=== PATIENT | male | born 1965 | race Caucasian/White ===

== ENCOUNTER 2016-11-12 23:11 | Inpatient (IN) | payer OTHER ==
[~2016-11-12] VITALS: Ht 185.4 cm; Wt 89.1 kg
[~2016-11-12 23:11] MED LIST: ASPCH81X PO; ATOR-54 PO; CYCL10TA6 PO; FLUT1AER5 INH; LISI40TA PO; PANT40TA PO
[2016-11-12] MEDS ORDERED: SODIUM CHLORIDE 0.9% 500ML 500 ML IV STA (23:37)
[2016-11-12 23:53] LABS: BASO % 0.4 %; BASO ABS # 0.05 K/uL (0-0.2); COMPLETE YES; EOS % 1.4 %; IG% 0.2 %; LYMPH % 30.6 %; LYMPH ABS # 3.97 K/uL (1.2-3.4); MEAN CELL VOLUME 82.9 fL (80-100); MEAN CORPUSCULAR HEMOGLOBIN 29.7 pg (25-34); MEAN CORPUSCULAR HGB CONC 35.8 g/dl (32-36); MEAN PLATELET VOLUME 11.8 fL (7.4-10.4); MONO % 8.3 %; NEUT % 59.1 %; PLATELET COUNT 243 K/uL (130-400); RED BLOOD COUNT 5.19 M/uL (4.7-6.1); WHITE BLOOD COUNT 12.98 K/uL (4.8-10.8)
[2016-11-13 00:01] LABS: ARTERIAL BLD GAS O2 SATURATION 97.1 % (90-95); ARTERIAL BLOOD GAS HCO3 15 mmol/L (19-24); ARTERIAL BLOOD GAS PO2 91 mm/Hg (80-95); ARTERIAL BLOOD GAS pH 7.39 (7.35-7.45)
[2016-11-13 00:02] LABS: ALLEN TEST POS (POS); O2 ADMINISTRATION RA
[2016-11-13] MEDS ORDERED: MELO15TA4 PO (00:10)
[2016-11-13] MEDS ORDERED: VNTHFA/IN INH (00:10)
[2016-11-13 00:18] LABS: ALB/GLOB RATIO 1.1 (0.9-2); ALKALINE PHOSPHATASE 133 U/L (45-117); ALT/SGPT 41 U/L (12-78); AST/SGOT 28 U/L (15-37); BLOOD UREA NITROGEN 20 mg/dl (7-18); BUN/CREATININE RATIO 15.2 (10-20); CALCIUM 9.3 mg/dl (8.5-10.1); CARBON DIOXIDE 15 mmol/L (21-32); CHLORIDE 87 mmol/L (98-107); GLUCOSE 573 mg/dl (70-99); POTASSIUM 4.1 mmol/L (3.5-5.1); SODIUM 123 mmol/L (136-145)
[2016-11-13 00:33] LABS: URINE APPEARANCE CLEAR (CLEAR); URINE BILIRUBIN NEG (NEG); URINE COLOR YELLOW; URINE NITRITE NEG (NEG); URINE SPECIFIC GRAVITY 1.027 (1.000-1.030); UROBILINOGEN NEG (NEG); ZZUR CULT IF INDIC CLEAN CATCH NO
[2016-11-13 00:38] LABS: MANUAL MICROSCOPIC REQUIRED? NO; REVIEW REQ? NO
[2016-11-13] MEDS ORDERED: SODIUM CHLORIDE 0.9% 1000ML 1,000 ML IV STA ×2 (00:38→02:52)
[2016-11-13] MEDS ORDERED: SODIUM CHLORIDE 0.9% 500ML 500 ML IV STA (00:38)
[2016-11-13 00:39] LABS: BETA-HYDROXYBUTYRATE 72.98 mg/dL (0.2-2.81)
[2016-11-13] MEDS ORDERED: LIDOCAINE HCL 2% VISC SOLN 20 ML UDC PO STA (00:45)
[2016-11-13] MEDS ORDERED: ALUMINUM/MAGNESIUM SUSP 30 ML UDC PO STA (00:45)
--- NOTE | 2016-11-13 00:48 | EMERGENCY ROOM VISIT NOTE ---
History Report prepared by Nadya: Helder Nuñez Under the Supervision of: Dr. Barbara Clifton D.O. First contact with patient: 00:32 Chief Complaint: HYPERGLYCEMIA Stated Complaint: HYPERGLYCEMIA Nursing Triage Summary: pt's checked pt blood sugar today and it was greater than 600. the is diabetic and became concerned when pt had no appetite, sleeping alot over the past few days. pt states his lack of appetite is due to sore gums which he has appointment for tomorrow. no hx of DM History of Present Illness The patient is a 51 year old male who presents to the Emergency Room with complaints of acute hyperglycemia that was measured earlier today. The patient' s BSG was greater than 400 earlier in the day and greater than 600 when he had it rechecked. The patient has never been diagnosed with diabetes. His is diabetic and was the one who measured his BSG. The patient has been experiencing lack of appetite, excessive sleep, increased thirst and dry mouth this week, which prompted his to check his BSG. The patient has a history of hypertension, hypercholesterolemia, and GERD. He smokes a quarter of a pack of cigarettes per day. Source of History: patient Onset: today Position: other (global) Symptom Intensity: BSG > 600 Quality: other (hyperglycemic) Timing: other (acute) Review of Systems See HPI for pertinent positives & negatives. A total of 10 systems reviewed and were otherwise negative. Past Medical & Surgical Medical Problems: (1) Diabetes mellitus (2) Esophageal Reflux (3) Hypertension Nos (4) Lumbosacral Spondylosis (5) Obstructive chronic bronchitis without exacerbation (6) Pure Hypercholesterolem Family History No pertinent family history Social History Smoking Status: Current Every Day Smoker Marital Status: Housing Status: lives with family Current/Historical Medications Scheduled Aspirin (Aspirin Chewable), 81 MG PO QAM Atorvastatin (Lipitor), 20 MG PO QPM Fluticasone Propionate (Inhala (Flovent Diskus), 1 PUFFS INH BID Insulin Glargine (Lantus Solostar), 18 UNIT SC HS Lisinopril (Zestril), 40 MG PO QAM Meloxicam (Mobic), 15 MG PO DAILY Pantoprazole (Protonix), 40 MG PO QAM Scheduled PRN Albuterol Hfa (Ventolin Hfa), 2-4 PUFFS INH Q6H PRN for SOB/Wheezing Cyclobenzaprine Hcl (Flexeril), 10 MG PO TID PRN for Pain Allergies Coded Allergies: BEE STING (Verified Allergy, Unknown, SWELLING, 11/13/16) Physical Exam Vital Signs Date Time Temp Pulse Resp B/P Pulse Ox O2 Delivery O2 Flow Rate FiO2 11/13/16 02:06 93 16 150/91 97 Room Air 11/13/16 01:34 92 16 141/97 97 Room Air 11/13/16 01:04 97 16 149/95 97 Room Air 11/13/16 00:37 96 16 149/95 97 Room Air 11/13/16 00:30 94 11/12/16 23:19 37.2 84 16 152/106 98 Room Air Physical Exam HEENT: Head - normocephalic and atraumatic Pupils are equal, round, and reactive to light. Extraocular eye muscles are intact, and sclera are anicteric. Nose - moist nasal mucosa without discharge. Mouth -dry buccal mucosa. Oropharynx is nonerythematous and there is no tonsillar exudate or edema noted. Neck: Supple; no JVD, nuchal rigidity, cervical lymphadenopathy. Heart: Tachycardic, regular rhythm. There is a normal S1 and S2 with no murmurs , clicks, or gallops appreciated. Lungs: Clear to auscultation bilaterally with no wheezes, rales, or rhonchi. Abdomen: Soft, completely nontender, nondistended, with good bowel sounds. There are no palpable pulsatile masses or hepatosplenomegaly. There is no guarding, rigidity, or rebound noted. Extremities: No evidence of cyanosis, clubbing, or edema. There are easily palpable peripheral pulses. Skin: warm and dry with good turgor and no rashes. Medical Decision & Procedures ER Provider Diagnostic Interpretation: X-ray results as stated below per interpretation by me. CHEST ONE VIEW PORTABLE: No cardiomegaly or pulmonary infiltrates. Laboratory Results Test 11/12/16 23:20 11/12/16 23:35 11/13/16 00:19 Total Bilirubin 0.7 mg/dl (0.2-1) Aspartate Amino Transf (AST/SGOT) 28 U/L (15-37) Alanine Aminotransferase (ALT/SGPT) 41 U/L (12-78) Alkaline Phosphatase 133 U/L (45-117) Total Protein 7.6 gm/dl (6.4-8.2) Albumin 4.0 gm/dl (3.4-5.0) Globulin 3.6 gm/dl (2.5-4.0) Albumin/Globulin Ratio 1.1 (0.9-2) Beta-Hydroxybutyric Acid 72.98 mg/dL (0.2-2.81) Arterial Blood pH 7.39 (7.35-7.45) Arterial Blood Partial Pressure CO2 25 mmHg (35-46) Arterial Blood Partial Pressure O2 91 mm/Hg (80-95) Arterial Blood HCO3 15 mmol/L (19-24) Arterial Blood Oxygen Saturation 97.1 % (90-95) Arterial Blood Base Excess -8.0 mEq/L (-9-1.8) Arterial Blood Gas Delivery RA José Test POS (POS) Urine Color YELLOW Urine Appearance CLEAR (CLEAR) Urine pH 5.0 (4.5-7.5) Urine Specific [place] 1.027 (1.000-1.030) Urine Protein NEG (NEG) Urine Glucose (UA) 3+ (NEG) Urine Ketones 4+ (NEG) Urine Occult Blood NEG (NEG) Urine Nitrite NEG (NEG) Urine Bilirubin NEG (NEG) Urine Urobilinogen NEG (NEG) Urine Leukocyte Esterase NEG (NEG) Laboratory results per my review. Medications Administered Medications (Trade) Dose Ordered Sig/Med Route Start Time Stop Time Status Last Admin Dose Admin Sodium Chloride 500 ml @ 999 mls/hr Q31M STAT IV 11/12/16 23:37 11/13/16 00:07 DC 11/13/16 00:03 999 MLS/HR Sodium Chloride 500 ml @ 999 mls/hr Q31M STAT IV 11/13/16 00:38 11/13/16 01:08 DC 11/13/16 00:53 999 MLS/HR Sodium Chloride (Nss 1000ml) 1,000 ml @ 250 mls/hr Q4H STAT IV 11/13/16 00:38 11/13/16 04:08 DC 11/13/16 00:54 250 MLS/HR Lidocaine HCl (Viscous Lidocaine 2% Soln) 10 ml NOW STAT PO 11/13/16 00:45 11/13/16 00:47 DC 11/13/16 00:53 10 ML Al Hydroxide/Mg Hydroxide (Maalox Susp) 30 ml NOW STAT PO 11/13/16 00:45 11/13/16 00:47 DC 11/13/16 00:53 30 ML Procedure Medications administered include NSS IV, Maalox PO, Lidocaine HCl PO. ECG Indication: other Rate (beats per minute): 98 Rhythm: normal sinus Findings: no acute ischemic change, no ectopy ED Course 0038: NSS 1000 ml @ 250 mls/hr, NSS 500 ml @ 999 mls/hr. 0042: Past medical records reviewed. The patient was evaluated in room A2. A complete history and physical exam was performed. An IV lock and given initiated and labs were drawn as above. A twelve-lead EKG was obtained as described above. Patient had chest x-ray as described above. 0045: The patient complained of heartburn. Maalox Susp 30 ml PO, Lidocaine HCl 10 ml PO. 0100: Spoke with Dr. Woodward [facility]. The patient will be evaluated. Medical Decision The patient is a 51 year old male who presents to the ED with hyperglycemia. Differential diagnosis includes new onset diabetes, hyperglycemia, DKA, dehydration. Laboratory interpretation: White count 12.9, stable H&H, urinalysis showed 4+ ketones, sodium 143, chloride 87, CO2 15, anion gap 21, BUN 20, creatinine 1.3, glucose 573, BHA 72.9, LFTs normal. Blood gases showed pH 7.39, PCO2 25, PO2 91. This is a 51-year-old male patient who presents to the emergency department with symptoms of diabetes and heartburn. EKG and cardiac enzymes were negative. The patient had significant hyperglycemia with elevated BHA and moderate ketones within the urine. The patient has significant risk for heart disease as he has a history of hypertension and hypercholesterolemia and is now diabetic. His heartburn was treated with a GI cocktail. The patient had an elevated BHA. His ABG does not show significant metabolic acidosis. I discussed the case with the [facility] and they will evaluate the patient for further care. Consults Time Called: 54 Consulting Physician: [facility] Returned Call: [phone]: [facility]. The patient will be evaluated. Impression Primary Impression: Hyperglycemia Scribe Attestation The scribe's documentation has been prepared under my direction and personally reviewed by me in its entirety. I confirm that the note above accurately reflects all work, treatment, procedures, and medical decision making performed by me. Departure Information Dispostion Being Evaluated By Hospitalist Prescriptions Insulin Glargine (Lantus Solostar) 100 Unit/Ml Inj 18 UNIT SC HS for 30 Days Prov: Zoe Goncalves MD 11/13/16 Referrals Kendra Israel (PCP) Patient Instructions My [facility]
[2016-11-13] MEDS ORDERED: MAGNESIUM HYDROXIDE SUSP 30 ML UDC PO PRN (02:45)
[2016-11-13] MEDS ORDERED: ONDANSETRON INJ 2 MG/ML 2 ML VIAL IV PRN (02:45)
[2016-11-13] MEDS ORDERED: DEXTROSE 50% 50 ML SYR IV PRN (02:45)
[2016-11-13] MEDS ORDERED: ALUMINUM/MAGNESIUM/SIMETH (MAALOX MAX) 30 ML UDC PO PRN (02:45)
[2016-11-13] MEDS ORDERED: GLUCOSE 40% GEL 15 GM TUBE PO PRN (02:45)
[2016-11-13] MEDS ORDERED: ENOXAPARIN 40 MG/0.4 ML SYR SQ SCH ×2 (02:45→21:00)
[2016-11-13] MEDS ORDERED: GLUCOSE 10 TABS/TUBE PO PRN (02:45)
[2016-11-13] MEDS ORDERED: POLYETHYLENE (MIRALAX) 17 GM PACK PO PRN (02:45)
[2016-11-13] MEDS ORDERED: GLUCAGON FOR INJ 1 MG VIAL SQ PRN (02:45)
--- NOTE | 2016-11-13 03:08 | History and Physical ---
History & Physical Date & Time of Service: Nov 13, 2016 at 02:20 Chief Complaint: Hyperglycemia Primary Care Physician: Kendra Israel History of Present Illness Source: patient Mr Jin is a 51 year old male smoker with hypertension who presents to the ER due to elevated blood glucose levels. He has been generally unwell for 1 week with right upper gum pain, coughing up sputum, fatigue, mild headache, nasal congestion (not unusual for him, takes Flonase), excessive thirst and urination (waking up in the night to urinate 5-6 times.night, unusual for him). His cough is worse on exertion, no worse on lying down. Due to the excessive thirst and urination his girlfriend who is diabetic took his blood sugar levels and they were elevated around 400 to 600 therefore he decided to come to the ER. He denies any dizziness or chest pain. 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) Allergies Coded Allergies: BEE STING (Verified Allergy, Unknown, SWELLING, 11/13/16) Home Medications Scheduled Aspirin (Aspirin Chewable), 81 MG PO QAM Atorvastatin (Lipitor), 20 MG PO QPM Fluticasone Propionate (Inhala (Flovent Diskus), 1 PUFFS INH BID Lisinopril (Zestril), 40 MG PO QAM Meloxicam (Mobic), 15 MG PO DAILY Pantoprazole (Protonix), 40 MG PO QAM Scheduled PRN Albuterol Hfa (Ventolin Hfa), 2-4 PUFFS INH Q6H PRN for SOB/Wheezing Cyclobenzaprine Hcl (Flexeril), 10 MG PO TID PRN for Pain Review of Systems Constitutional: No chills, No fever Eyes: No diplopia, No discharge, No eye pain, No redness, No worsening of vision Respiratory: No cough, No sputum, No wheezing Cardiovascular: + chest pain (odd twinge, longstanding, mild), No PND, No claudication, No edema, No orthopnea, No palpitations Abdomen: No constipation, No diarrhea, No nausea, No pain, No vomiting Musculoskeletal: + joint pain (back), + muscle pain (right calf longstanding after multiple knee surgeries) Genitourinary - Male: + urinary frequency, No dysuria, No hematuria Neurologic: No memory loss, No paralysis, No weakness Psychiatric: No anxiety, No depression symptoms Endocrine: + excessive thirst, + excessive urination Hematologic / Lymphatic: No abnormal bleeding/bruising Integumentary: No itch, No rash Physical Exam Vital Signs Date Time Temp Pulse Resp B/P Pulse Ox O2 Delivery O2 Flow Rate FiO2 11/13/16 02:06 93 16 150/91 97 Room Air 11/13/16 01:34 92 16 141/97 97 Room Air 11/13/16 01:04 97 16 149/95 97 Room Air 11/13/16 00:37 96 16 149/95 97 Room Air 11/13/16 00:30 94 11/12/16 23:19 37.2 84 16 152/106 98 Room Air General Appearance: WD/WN, no apparent distress Head: normocephalic, atraumatic Eyes: normal inspection, PERRL, EOMI ENT: normal ENT inspection, hearing grossly normal, + pertinent finding Neck: supple, thyroid normal, no JVD, no carotid bruits, trachea midline Respiratory/Chest: chest non-tender, lungs clear, no respiratory distress, no accessory muscle use, + decreased breath sounds (at bases) Cardiovascular: regular rate, rhythm, no edema, no murmur, normal peripheral pulses Abdomen/GI: normal bowel sounds, non tender, soft Back: no CVA tenderness, no muscle spasm Extremities/Musculoskelatal: normal inspection, normal capillary refill, no pedal edema, + calf tenderness (right calf) Neurologic/Psych: 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 II-XII nml as tested, no motor/sensory deficits, alert, normal mood/affect, oriented x 3 Skin: normal color, warm/dry, no rash Diagnostics Laboratory Results Results Past 24 Hours Test 11/12/16 23:17 11/12/16 23:20 11/12/16 23:35 11/13/16 00:19 Range/Units Bedside Glucose 560 70-99 mg/dl White Blood Count 12.98 4.8-10.8 K/uL Red Blood Count 5.19 4.7-6.1 M/uL Hemoglobin 15.4 14.0-18.0 g/dL Hematocrit 43.0 42-52 % Mean Corpuscular Volume 82.9 80-100 fL Mean Corpuscular Hemoglobin 29.7 25-34 pg Mean Corpuscular Hemoglobin Concent 35.8 32-36 g/dl Platelet Count 243 130-400 K/uL Mean Platelet Volume 11.8 7.4-10.4 fL Neutrophils (%) (Auto) 59.1 % Lymphocytes (%) (Auto) 30.6 % Monocytes (%) (Auto) 8.3 % Eosinophils (%) (Auto) 1.4 % Basophils (%) (Auto) 0.4 % Neutrophils # (Auto) 7.67 1.4-6.5 K/uL Lymphocytes # (Auto) 3.97 1.2-3.4 K/uL Monocytes # (Auto) 1.08 0.11-0.59 K/uL Eosinophils # (Auto) 0.18 0-0.5 K/uL Basophils # (Auto) 0.05 0-0.2 K/uL RDW Standard Deviation 38.8 36.4-46.3 fL RDW Coefficient of Variation 12.9 11.5-14.5 % Immature Granulocyte % (Auto) 0.2 % Immature Granulocyte # (Auto) 0.03 0.00-0.02 K/uL Sodium Level 123 136-145 mmol/L Potassium Level 4.1 3.5-5.1 mmol/L Chloride Level 87 98-107 mmol/L Carbon Dioxide Level 15 21-32 mmol/L Anion Gap 21.0 3-11 mmol/L Blood Urea Nitrogen 20 7-18 mg/dl Creatinine 1.30 0.60-1.40 mg/dl Est Creatinine Clear Calc Drug Dose 74.2 ml/min Estimated GFR () 72.2 Estimated GFR (Non- 62.3 BUN/Creatinine Ratio 15.2 10-20 Random Glucose 573 70-99 mg/dl Calcium Level 9.3 8.5-10.1 mg/dl Total Bilirubin 0.7 0.2-1 mg/dl Aspartate Amino Transf (AST/SGOT) 28 15-37 U/L Alanine Aminotransferase (ALT/SGPT) 41 12-78 U/L Alkaline Phosphatase 133 45-117 U/L Total Protein 7.6 6.4-8.2 gm/dl Albumin 4.0 3.4-5.0 gm/dl Globulin 3.6 2.5-4.0 gm/dl Albumin/Globulin Ratio 1.1 0.9-2 Beta-Hydroxybutyric Acid 72.98 0.2-2.81 mg/dL Arterial Blood pH 7.39 7.35-7.45 Arterial Blood Partial Pressure CO2 25 35-46 mmHg Arterial Blood Partial Pressure O2 91 80-95 mm/Hg Arterial Blood HCO3 15 19-24 mmol/L Arterial Blood Oxygen Saturation 97.1 90-95 % Arterial Blood Base Excess -8.0 -9-1.8 mEq/L Arterial Blood Gas Delivery RA José Test POS POS Urine Color YELLOW Urine Appearance CLEAR CLEAR Urine pH 5.0 4.5-7.5 Urine Specific [place] 1.027 1.000-1.030 Urine Protein NEG NEG Urine Glucose (UA) 3+ NEG Urine Ketones 4+ NEG Urine Occult Blood NEG NEG Urine Nitrite NEG NEG Urine Bilirubin NEG NEG Urine Urobilinogen NEG NEG Urine Leukocyte Esterase NEG NEG Diagnostic Radiology CXR - read by myself, radiology report pending, nill acute, no consolidation or pulmonary edema EKG EKG: NSR, rate 98 bpm, QTc 434 ms, normal axis, no ischemic changes noted Impression Assessment and Plan 50 year old male. Generally unwell with URI Sx, gum pain, excessive urination and thirst for the last week. Came to the ER as blood sugars taken by his girlfriend were raised 400 to 600. Hyperglycemia - on review of previous H notes he had an HbA1C 6.3 in February 2015 , none since then - NSS give additional 1L bolus now. Then 200 MLS/HR - Lantus 10 units BID - NovoLog 50 correction factor, 1:14 carb ratio. - T2DM diet - Consider metformin before discharge if renal function stable/improving. - Correction given now of 7 units novolog and morning lantus given early. Shortness of breath on exertion - no EKG changes. Will add a troponin to labs. - likely related to dehydration and URI illness. Upper respiratory tract infection - CXR appears clear but will wait for official report - WBC 12.98 Gum pain - increase in saliva - will treat as periodontic infection with Augmentin 875mg BID (5 days) Hyponatremia - secondary to osmotic diuresis - rehydrated with NSS as above. Repeat in morning. HTN - hold lisinopril pending next Cr, can likely restart in the morning. - Monitor BP Emphysema without current exacerbation - Continue Fluticasone diskus (patient has this with him). 2 puffs BID. GERD - Continue pantoprazole VTE Prophylaxis - enoxaparin 40 mg SC daily - SCDs and TEDs Code Full Disposition - med/surg Level of Care Med/Surg Resuscitation Status FULL RESUSCITATION VTE Prophylaxis VTE Risk Assessment Done? Y/N: Yes Risk Level: Moderate (will need chemical prophylaxis if staying > 1 day) Given or contraindicated: Enoxaparin (Lovenox)SQ Additional Copies To Kendra Israel Resident Tracking Resident Involvement: Resident Care Provided Care Provided: [facility] Assessment and Plan Attending Addendum: I have physically seen and examined this patient, have directed their medical care, have supervised the medical residents activities, and agree with the H&P as noted above, with the following changes: NONE ex The patient is awake, well-developed and adequately nourished, alert and oriented 3, normocephalic and atraumatic, lying in bed and in no acute distress. HEENT--PERRL, EOMI, mucous membranes and oropharynx dry. Neck--supple, no JVD or bruits, thyroid normal, trachea midline, no adenopathy. Heart--normal S1 and S2, no extra beats, no murmurs, rubs or gallops. Lungs--clear bilaterally with good air movement, no respiratory distress, no accessory muscle use. Abdomen--normal bowel sounds and soft, nontender and nondistended, no hernias or masses, no organomegaly. Extremities--no cyanosis, clubbing or edema. There are good distal pulses b/l. Dermatologic--normal skin turgor, normal color, warm and dry, no abnormal lymph nodes, no rash. Neurologic--cranial nerves II through XII grossly intact, motor and sensory examination normal. Rheumatologic--normal range of motion, nontender, muscles and joints. Psychiatric--normal affect. Assessment and Plan: New onset diabetes mellitus--the patient likely has had blood sugars elevated in a more modest 200 range over the past weeks to months, which then worsened with respiratory infection that developed over the past few weeks and more recently with a dental infection, all with strove his blood sugars into the 600 range when tested by his significant other at home. We will order a hemoglobin A1c. He'll be started on conservatively with Lantus insulin, and add metformin extended release 500 mg twice a day. He will need diabetic education and instruction on checking his blood sugar. He does have a follow-up appointment scheduled with his physician tomorrow, but will likely be rescheduled. He did receive 2 L of normal saline emergency department, and will be placed on additional IV fluids maintenance for the remainder of the day. Hypercholesterolemia--continue atorvastatin 20 mg by mouth every afternoon. Hypertension--continue lisinopril 40 mg by mouth every morning and she will aspirin 81 mg by mouth every morning. GERD--continue pantoprazole 40 mg by mouth every morning. Pain management--he has been on meloxicam 15 mg by mouth daily, would be careful combining NSAIDs and GRACE inhibitor is in a diabetic for possible adverse effect on kidney function.
[2016-11-13] MEDS ORDERED: ALBUTEROL HFA 8 GM INHALER INH PRN (03:30)
[2016-11-13] MEDS ORDERED: CYCLOBENZAPRINE HCL 10 MG TAB PO PRN (03:30)
[2016-11-13] MEDS ORDERED: NURSING VERBAL MED ORDER STA (03:43)
[2016-11-13 03:45] VITALS: BP 141/84; PULSE 84; TEMP 36.8; O2SAT 96; BMI 25.9
[2016-11-13] MEDS ORDERED: INSULIN GLARGINE SOLOSTAR 100 UNITS/ML 3 ML PEN SC STA (03:45)
[2016-11-13] MEDS ORDERED: INSULIN ASPART 100 UNITS/ML 3 ML PEN SC STA (03:52)
[2016-11-13] MEDS: SODIUM CHLORIDE 0.9% 1000ML 1,000 ML IV SCH ×5 (04:15→23:49)
--- NOTE | 2016-11-13 06:59 | DIAGNOSTIC IMAGING REPORT ---
CHEST ONE VIEW PORTABLE CLINICAL HISTORY: hyperglycemic dyspnea COMPARISON STUDY: 10/15/2015 FINDINGS: The bones soft tissues and hemidiaphragms are normal. The cardiomediastinal silhouette is normal. The lungs are clear. The pulmonary vasculature is normal. IMPRESSION: Negative chest. Electronically signed by: Brown Valdovinos M.D. 11/13/2016 6:58 AM Dictated Date/Time: 11/13/2016 6:57 AM
[2016-11-13 07:36] LABS: HEMATOCRIT 37.1 % (42-52); MEAN CELL VOLUME 82.4 fL (80-100); MEAN CORPUSCULAR HEMOGLOBIN 30.4 pg (25-34); MEAN CORPUSCULAR HGB CONC 36.9 g/dl (32-36); MEAN PLATELET VOLUME 10.8 fL (7.4-10.4); PLATELET COUNT 191 K/uL (130-400); WHITE BLOOD COUNT 9.54 K/uL (4.8-10.8)
[2016-11-13 07:44] LABS: PROTHROMBIN TIME (PATIENT) 10.5 SECONDS (9.0-12.0)
[2016-11-13 07:45] VITALS: BP 135/79; PULSE 77; TEMP 36.4; O2SAT 95
[2016-11-13 08:22] LABS: BLOOD UREA NITROGEN 14 mg/dl (7-18); BUN/CREATININE RATIO 15.6 (10-20); CALCIUM 8.2 mg/dl (8.5-10.1); CARBON DIOXIDE 19 mmol/L (21-32); CHLORIDE 100 mmol/L (98-107); CREATININE 0.89 mg/dl (0.60-1.40); GLUCOSE 249 mg/dl (70-99); POTASSIUM 3.5 mmol/L (3.5-5.1); SODIUM 133 mmol/L (136-145)
[2016-11-13] MEDS ORDERED: INSULIN GLARGINE SOLOSTAR 100 UNITS/ML 3 ML PEN SC SCH ×3 (09:00→21:00)
[2016-11-13 09:06] VITALS: O2SAT 95
[2016-11-13] MEDS: INSULIN ASPART 100 UNITS/ML 3 ML PEN SC SCH ×4 (09:25→21:39)
[2016-11-13] MEDS: PANTOprazole SOD 40 MG TAB PO SCH (09:26)
[2016-11-13] MEDS: AMOXICILLIN/CLAVULANATE TAB 875 MG TAB PO SCH ×2 (09:26→18:49)
[2016-11-13] MEDS: ASPIRIN 81 MG ECTAB PO SCH (09:26)
--- NOTE | 2016-11-13 09:46 | Progress Note ---
Subjective Date of Service: Nov 13, 2016. Subjective Pt evaluation today including: conversation w/ patient, conversation w/ family , physical exam, chart review, lab review, review of inpatient medication list Admits to smoking 1/2 PPD. No chest pain, no sob, some weight loss in the past few weeks. Has some swallowing issues to the lower right side (dental issues in the upper right side). Problem List Medical Problems: (1) Hyperglycemia Status: Acute (2) Toe dislocation Status: Acute (3) Toe sprain Status: Acute Review of Systems All Other Systems: Reviewed and Negative Medications Acetaminophen (Tylenol Tab) 650 mg Q4H PRN PO; Start 11/13/16 at 02:45; Stop 12/13/16 at 02:44 Al Hydrox/Mg Hydrox/Simethicone (Maalox Max Susp) 15 ml Q4H PRN PO; Start 11/13 at 02:45; Stop 12/13/16 at 02:44 Albuterol (Ventolin Hfa Inhaler) 2 puffs Q6H PRN INH; Start 11/13/16 at 03:30; Stop 12/13/16 at 03:29 Amoxicillin/ Clavulanate Potassium (Augmentin Tab) 875 mg BIDM PO; Start at 08:00; Stop 11/18/16 at 07:59 Aspirin (Ecotrin Tab) 81 mg QAM PO; Start 11/13/16 at 09:00; Stop 12/13/16 at 08 :59 Atorvastatin Calcium (Lipitor Tab) 20 mg QPM PO; Start 11/13/16 at 21:00; Stop 12/13/16 at 20:59 Cyclobenzaprine HCl (Flexeril Tab) 10 mg TID PRN PO; Start 11/13/16 at 03:30; Stop 12/13/16 at 03:29 Dextrose (Dextrose 50% 50ML Syringe) 25-50ML OF 50% DW IV FOR... UD PRN IV; Start 11/13/16 at 02:45; Stop 12/13/16 at 02:44 Enoxaparin Sodium (Lovenox Inj) 40 mg QPM SQ; Start 11/13/16 at 21:00; Stop at 20:59 Glucagon (Glucagon Inj) 1 mg UD PRN SQ; Start 11/13/16 at 02:45; Stop 12/13/16 at 02:44 Glucose (Glucose 40% Gel) 15-30 GRAMS 15 GRAMS... UD PRN PO; Start 11/13/16 at 02:45; Stop 12/13/16 at 02:44 Glucose (Glucose Chew Tab) 4-8 Tablets 4 Tabl... UD PRN PO; Start 11/13/16 at 02:45; Stop 12/13/16 at 02:44 Insulin Aspart SLIDING SCALE If C... ACHS SC; Start 11/13/16 at 07:00 Insulin Glargine (Lantus Solostar Pen) 10 unit BID SC; Start 11/13/16 at 21:00; Stop 12/13/16 at 20:59 Magnesium Hydroxide (Milk Of Magnesia Susp) 30 ml Q6H PRN PO; Start 11/13/16 at 02:45; Stop 12/13/16 at 02:44 Miscellaneous Information (Order Awaiting Action) 1 ea QS N/A; Start 11/13/16 at 08:00; Stop 12/13/16 at 07:59 Ondansetron HCl (Zofran Inj) 4 mg Q6H PRN IV; Start 11/13/16 at 02:45; Stop at 02:44 Pantoprazole Sodium (Protonix Tab) 40 mg QAM PO; Start 11/13/16 at 09:00; Stop 12/13/16 at 08:59 Polyethylene (Miralax Powder Packet) 17 gm DAILY PRN PO; Start 11/13/16 at 02: 45; Stop 12/13/16 at 02:44 Sodium Chloride (Nss 1000ml) 1,000 ml @ 200 mls/hr Q5H IV Last administered on 11/13/16t 04:15; Admin Dose 200 MLS/HR; Start 11/13/16 at 04:15; Stop 12/13/16 at 04:14 Objective Vital Signs Date Time Temp Pulse Resp B/P Pulse Ox O2 Delivery O2 Flow Rate FiO2 11/13/16 09:06 95 Room Air 11/13/16 07:45 36.4 77 14 135/79 95 Room Air 11/13/16 03:45 36.8 84 20 141/84 96 Room Air 11/13/16 02:06 93 16 150/91 97 Room Air 11/13/16 01:34 92 16 141/97 97 Room Air 11/13/16 01:04 97 16 149/95 97 Room Air 11/13/16 00:37 96 16 149/95 97 Room Air 11/13/16 00:30 94 11/12/16 23:19 37.2 84 16 152/106 98 Room Air Physical Exam Comments: NAD, AOx3 eomi, perrl, anicteric sclerae +thrush s1 s2 rrr, no m/r/g ctab no w/r/r abd soft, nt/nd +BS, no organomegaly no LE edema cn 2-12 grossly intact without facial drooping Laboratory Results Last 24 Hours Test 11/12/16 23:17 11/12/16 23:20 11/12/16 23:35 11/13/16 00:19 Bedside Glucose 560 mg/dl White Blood Count 12.98 K/uL Red Blood Count 5.19 M/uL Hemoglobin 15.4 g/dL Hematocrit 43.0 % Mean Corpuscular Volume 82.9 fL Mean Corpuscular Hemoglobin 29.7 pg Mean Corpuscular Hemoglobin Concent 35.8 g/dl Platelet Count 243 K/uL Mean Platelet Volume 11.8 fL Neutrophils (%) (Auto) 59.1 % Lymphocytes (%) (Auto) 30.6 % Monocytes (%) (Auto) 8.3 % Eosinophils (%) (Auto) 1.4 % Basophils (%) (Auto) 0.4 % Neutrophils # (Auto) 7.67 K/uL Lymphocytes # (Auto) 3.97 K/uL Monocytes # (Auto) 1.08 K/uL Eosinophils # (Auto) 0.18 K/uL Basophils # (Auto) 0.05 K/uL RDW Standard Deviation 38.8 fL RDW Coefficient of Variation 12.9 % Immature Granulocyte % (Auto) 0.2 % Immature Granulocyte # (Auto) 0.03 K/uL Sodium Level 123 mmol/L Potassium Level 4.1 mmol/L Chloride Level 87 mmol/L Carbon Dioxide Level 15 mmol/L Anion Gap 21.0 mmol/L Blood Urea Nitrogen 20 mg/dl Creatinine 1.30 mg/dl Est Creatinine Clear Calc Drug Dose 74.2 ml/min Estimated GFR () 72.2 Estimated GFR (Non- 62.3 BUN/Creatinine Ratio 15.2 Random Glucose 573 mg/dl Calcium Level 9.3 mg/dl Total Bilirubin 0.7 mg/dl Aspartate Amino Transf (AST/SGOT) 28 U/L Alanine Aminotransferase (ALT/SGPT) 41 U/L Alkaline Phosphatase 133 U/L Troponin I < 0.015 ng/ml Total Protein 7.6 gm/dl Albumin 4.0 gm/dl Globulin 3.6 gm/dl Albumin/Globulin Ratio 1.1 Beta-Hydroxybutyric Acid 72.98 mg/dL Arterial Blood pH 7.39 Arterial Blood Partial Pressure CO2 25 mmHg Arterial Blood Partial Pressure O2 91 mm/Hg Arterial Blood HCO3 15 mmol/L Arterial Blood Oxygen Saturation 97.1 % Arterial Blood Base Excess -8.0 mEq/L Arterial Blood Gas Delivery RA José Test POS Urine Color YELLOW Urine Appearance CLEAR Urine pH 5.0 Urine Specific [place] 1.027 Urine Protein NEG Urine Glucose (UA) 3+ Urine Ketones 4+ Urine Occult Blood NEG Urine Nitrite NEG Urine Bilirubin NEG Urine Urobilinogen NEG Urine Leukocyte Esterase NEG Test 11/13/16 03:54 11/13/16 07:10 11/13/16 08:22 Bedside Glucose 374 mg/dl 248 mg/dl White Blood Count 9.54 K/uL Red Blood Count 4.50 M/uL Hemoglobin 13.7 g/dL Hematocrit 37.1 % Mean Corpuscular Volume 82.4 fL Mean Corpuscular Hemoglobin 30.4 pg Mean Corpuscular Hemoglobin Concent 36.9 g/dl RDW Standard Deviation 39.3 fL RDW Coefficient of Variation 12.9 % Platelet Count 191 K/uL Mean Platelet Volume 10.8 fL Prothrombin Time 10.5 SECONDS Prothromb Time International Ratio 1.0 Sodium Level 133 mmol/L Potassium Level 3.5 mmol/L Chloride Level 100 mmol/L Carbon Dioxide Level 19 mmol/L Anion Gap 14.0 mmol/L Blood Urea Nitrogen 14 mg/dl Creatinine 0.89 mg/dl Est Creatinine Clear Calc Drug Dose 108.5 ml/min Estimated GFR () 113.1 Estimated GFR (Non- 97.6 BUN/Creatinine Ratio 15.6 Random Glucose 249 mg/dl Calcium Level 8.2 mg/dl Troponin I < 0.015 ng/ml Hepatitis C Antibody Screen NEG Assessment and Plan 1. New dx T2DM - glycemic control improved with lantus and aspart regimen - will f/u A1C - DM education/counselling provided including eye appt, podiatry, and urine protein/microalbumin testing - will start on lantus 18 at night with aspart 6tidac weight-based regimen - will also discharge on metformin 500mg bid and will increase in a week to 1000mg bid - send urine for microalbumin 2. Hyponatremia - 2/2 hyperglycemia and volume depletion - improving - monitor bmp 3. htn - bp acceptable off antihypertensive - patient on lisinopril at home - will resume on discharge 4. Smoking cessation - counselled on smoking cessation - offered nicotine patch 5. Periodontal infection - cont augmentin 6. THrush - start nystatin s/s dvt ppx with lovenox
[2016-11-13 09:55] LABS: ESTIMATED AVERAGE GLUCOSE 364 mg/dl; HA1C FLAG Normal (Normal)
[2016-11-13] MEDS ORDERED: INSULIN GLARGINE PER UNIT 10 UNITS in SYRINGE 0 ML SC STA (12:22)
[2016-11-13] MEDS ORDERED: INSULIN GLARGINE SOLOSTAR 100 UNITS/ML 3 ML PEN SC ONE (13:00)
[2016-11-13 15:13] VITALS: BP 117/73; PULSE 81; TEMP 36.5; O2SAT 96
[2016-11-13 15:20] VITALS: BMI 25.9
[2016-11-13] MEDS: NICOTINE 7 MG/24 HR TDSY TD SCH (15:28)
[2016-11-13 17:07] LABS: BASO % 0.4 %; BASO ABS # 0.04 K/uL (0-0.2); COMPLETE YES; EOS % 2.8 %; HEMATOCRIT 34.2 % (42-52); IG% 0.3 %; LYMPH % 32.4 %; LYMPH ABS # 2.93 K/uL (1.2-3.4); MEAN CORPUSCULAR HEMOGLOBIN 29.9 pg (25-34); MEAN PLATELET VOLUME 11.1 fL (7.4-10.4); MONO % 7.1 %; PLATELET COUNT 189 K/uL (130-400); RED BLOOD COUNT 4.12 M/uL (4.7-6.1); WHITE BLOOD COUNT 9.03 K/uL (4.8-10.8)
[2016-11-13 17:30] LABS: BUN/CREATININE RATIO 13.3 (10-20); CALCIUM 7.6 mg/dl (8.5-10.1); CREATININE 0.95 mg/dl (0.60-1.40); MAGNESIUM 1.7 mg/dl (1.8-2.4); POTASSIUM 3.7 mmol/L (3.5-5.1)
[2016-11-13] MEDS ORDERED: NYSTATIN SUSP 500,000 U/5 ML UDC PO ONE (17:30)
[2016-11-13] MEDS ORDERED: MAGNESIUM OXIDE 400 MG TAB PO ONE (17:35)
--- NOTE | 2016-11-13 18:51 | Discharge Instructions ---
Discharge Instructions Admission Reason for Admission: Back Pain, Hyperglycemia, Obstruct. Chronic Bronch Discharge Discharge Diagnosis / Problem: stable for home Discharge Goals Goal(s): Improve disease control Activity Recommendations Activity Limitations: resume your previous activity . Current Hospital Diet Patient's current hospital diet: Diabetes Type 2 Diet Discharge Diet Recommended Diet: Diabetes Type 2 Diet Pending Studies Studies pending at discharge: no Laboratory Results Hemoglobin A1c Test 11/13/16 07:10 Range/Units Estimated Average Glucose 364 mg/dl Hemoglobin A1c 14.3 H 4.5-5.6 % Medical Emergencies . Who to Call and When: Medical Emergencies: If at any time you feel your situation is an emergency, please call 911 immediately. . Non-Emergent Contact Non-Emergency issues call your: Primary Care Provider . . "Provider Documentation" section prepared by Zoe Goncalves. VTE Core Measure Inpt VTE Proph given/why not?: Enoxaparin (Lovenox)SQ
[2016-11-13] MEDS ORDERED: INSDGIPEN SC (18:53)
[2016-11-13] MEDS ORDERED: ATORVASTATIN 20 MG TAB PO SCH (21:00)
[2016-11-13] MEDS: NYSTATIN SUSP 500,000 U/5 ML UDC PO SCH (21:22)
[2016-11-13] MEDS: FLUTICASONE 100 MCG INH SCH (22:09)
[2016-11-13 22:45] VITALS: BP 107/72; PULSE 84; TEMP 36.7; O2SAT 97
[2016-11-13] MEDS: ACETAMINOPHEN 325 MG TAB PO PRN (23:58)
[2016-11-14] MEDS: SODIUM CHLORIDE 0.9% 1000ML 1,000 ML IV SCH (04:40)
[2016-11-14 07:33] VITALS: BP 137/71; PULSE 74; TEMP 36.6; O2SAT 96
[2016-11-14 07:50] LABS: BASO % 0.6 %; BASO ABS # 0.04 K/uL (0-0.2); COMPLETE YES; EOS % 2.3 %; HEMATOCRIT 34.1 % (42-52); IG% 0.1 %; LYMPH % 42.3 %; LYMPH ABS # 2.94 K/uL (1.2-3.4); MEAN CELL VOLUME 85.5 fL (80-100); MEAN CORPUSCULAR HEMOGLOBIN 30.1 pg (25-34); MEAN CORPUSCULAR HGB CONC 35.2 g/dl (32-36); MEAN PLATELET VOLUME 11.2 fL (7.4-10.4); MONO % 7.2 %; NEUT % 47.5 %; PLATELET COUNT 159 K/uL (130-400); RED BLOOD COUNT 3.99 M/uL (4.7-6.1); WHITE BLOOD COUNT 6.95 K/uL (4.8-10.8)
[2016-11-14 08:25] LABS: BUN/CREATININE RATIO 10.8 (10-20); CALCIUM 7.5 mg/dl (8.5-10.1); CREATININE 0.65 mg/dl (0.60-1.40); MAGNESIUM 1.8 mg/dl (1.8-2.4); POTASSIUM 3.2 mmol/L (3.5-5.1)
[2016-11-14] MEDS ORDERED: MAGNESIUM OXIDE 400 MG TAB PO SCH (09:00)
[2016-11-14] MEDS: AMOXICILLIN/CLAVULANATE TAB 875 MG TAB PO SCH (09:00)
[2016-11-14] MEDS: PANTOprazole SOD 40 MG TAB PO SCH (09:01)
[2016-11-14] MEDS: ASPIRIN 81 MG ECTAB PO SCH (09:02)
[2016-11-14] MEDS: FLUTICASONE 100 MCG INH SCH (09:03)
[2016-11-14] MEDS: NYSTATIN SUSP 500,000 U/5 ML UDC PO SCH ×2 (09:03→13:08)
[2016-11-14] MEDS: INSULIN ASPART 100 UNITS/ML 3 ML PEN SC SCH ×2 (09:10→13:13)
[2016-11-14] MEDS: NICOTINE 7 MG/24 HR TDSY TD SCH (09:40)
[2016-11-14] MEDS ORDERED: POTASSIUM CHLORIDE 20 MEQ TABCR PO ONE ×2 (10:00→13:00)
[2016-11-14] MEDS ORDERED: NURSING VERBAL MED ORDER ONE (10:15)
--- NOTE | 2016-11-14 10:20 | Progress Note ---
Subjective Date of Service: Nov 14, 2016. Subjective Pt evaluation today including: conversation w/ patient, physical exam, review of studies, review of inpatient medication list Feeling better. Swallowing is better. Glucose readings improved. No fevers, no chest pain, no sob. Problem List Medical Problems: (1) Hyperglycemia Status: Acute (2) Toe dislocation Status: Acute (3) Toe sprain Status: Acute Review of Systems All Other Systems: Reviewed and Negative Medications Medications (Trade) Dose Ordered Sig/Med Route Start Time Stop Time Status Last Admin Dose Admin Atorvastatin Calcium (Lipitor Tab) 20 mg QPM PO 11/13/16 21:00 11/14/16 13:45 DC 11/13/16 21:22 20 MG Enoxaparin Sodium (Lovenox Inj) 40 mg QPM SQ 11/13/16 21:00 11/14/16 13:45 DC 11/13/16 21:26 40 MG Nicotine (Nicoderm Cq 7 Mg Patch) 1 patch QAM TD 11/14/16 09:00 11/14/16 13:45 DC 11/14/16 09:40 1 PATCH Insulin Glargine (Lantus Solostar Pen) 18 unit HS SC 11/13/16 21:00 11/14/16 13:45 DC 11/13/16 21:39 18 UNIT Nystatin (Mycostatin Susp) 5 ml QID PO 11/13/16 21:00 11/14/16 13:45 DC 11/14/16 13:08 5 ML Magnesium Oxide (Mag-Ox Tab) 800 mg QAM PO 11/14/16 09:00 11/14/16 13:45 DC 11/14/16 09:02 800 MG Magnesium Oxide (Mag-Ox Tab) 800 mg 1735 ONCE PO 11/13/16 17:35 11/13/16 17:41 DC 11/13/16 18:48 800 MG Potassium Chloride (Klor-Con Tab) 40 meq 1000 ONCE PO 11/14/16 10:00 11/14/16 10:01 DC 11/14/16 10:18 40 MEQ Potassium Chloride (Klor-Con Tab) 40 meq 1300 ONCE PO 11/14/16 13:00 11/14/16 13:01 DC 11/14/16 13:07 40 MEQ Objective Vital Signs Date Time Temp Pulse Resp B/P Pulse Ox O2 Delivery O2 Flow Rate FiO2 11/14/16 08:00 Room Air 11/14/16 07:33 36.6 74 16 137/71 96 Room Air 11/14/16 00:00 Room Air 11/13/16 22:45 36.7 84 18 107/72 97 Room Air 11/13/16 16:00 Room Air 11/13/16 15:13 36.5 81 16 117/73 96 Room Air Physical Exam Comments: nad, aox3 eomi, perrl, anicteric sclerae s1 s2 rrr, no m/r/g ctab no w/r/r abd soft, nt/nd +BS no LE edema cn 2-12 grossly intact +thrush Laboratory Results Last 24 Hours Test 11/13/16 12:08 11/13/16 12:45 11/13/16 15:04 11/13/16 16:44 Bedside Glucose 441 mg/dl 277 mg/dl Urine Random Microalbumin 7.0 mg/L White Blood Count 9.03 K/uL Red Blood Count 4.12 M/uL Hemoglobin 12.3 g/dL Hematocrit 34.2 % Mean Corpuscular Volume 83.0 fL Mean Corpuscular Hemoglobin 29.9 pg Mean Corpuscular Hemoglobin Concent 36.0 g/dl Platelet Count 189 K/uL Mean Platelet Volume 11.1 fL Neutrophils (%) (Auto) 57.0 % Lymphocytes (%) (Auto) 32.4 % Monocytes (%) (Auto) 7.1 % Eosinophils (%) (Auto) 2.8 % Basophils (%) (Auto) 0.4 % Neutrophils # (Auto) 5.14 K/uL Lymphocytes # (Auto) 2.93 K/uL Monocytes # (Auto) 0.64 K/uL Eosinophils # (Auto) 0.25 K/uL Basophils # (Auto) 0.04 K/uL RDW Standard Deviation 39.8 fL RDW Coefficient of Variation 13.1 % Immature Granulocyte % (Auto) 0.3 % Immature Granulocyte # (Auto) 0.03 K/uL Sodium Level 132 mmol/L Potassium Level 3.7 mmol/L Chloride Level 101 mmol/L Carbon Dioxide Level 20 mmol/L Anion Gap 11.0 mmol/L Blood Urea Nitrogen 13 mg/dl Creatinine 0.95 mg/dl Est Creatinine Clear Calc Drug Dose 101.6 ml/min Estimated GFR () 105.5 Estimated GFR (Non- 91.0 BUN/Creatinine Ratio 13.3 Random Glucose 254 mg/dl Calcium Level 7.6 mg/dl Magnesium Level 1.7 mg/dl Test 11/13/16 17:01 11/13/16 20:39 11/14/16 07:25 11/14/16 07:55 Bedside Glucose 264 mg/dl 349 mg/dl 200 mg/dl White Blood Count 6.95 K/uL Red Blood Count 3.99 M/uL Hemoglobin 12.0 g/dL Hematocrit 34.1 % Mean Corpuscular Volume 85.5 fL Mean Corpuscular Hemoglobin 30.1 pg Mean Corpuscular Hemoglobin Concent 35.2 g/dl Platelet Count 159 K/uL Mean Platelet Volume 11.2 fL Neutrophils (%) (Auto) 47.5 % Lymphocytes (%) (Auto) 42.3 % Monocytes (%) (Auto) 7.2 % Eosinophils (%) (Auto) 2.3 % Basophils (%) (Auto) 0.6 % Neutrophils # (Auto) 3.30 K/uL Lymphocytes # (Auto) 2.94 K/uL Monocytes # (Auto) 0.50 K/uL Eosinophils # (Auto) 0.16 K/uL Basophils # (Auto) 0.04 K/uL RDW Standard Deviation 41.7 fL RDW Coefficient of Variation 13.3 % Immature Granulocyte % (Auto) 0.1 % Immature Granulocyte # (Auto) 0.01 K/uL Sodium Level 138 mmol/L Potassium Level 3.2 mmol/L Chloride Level 106 mmol/L Carbon Dioxide Level 20 mmol/L Anion Gap 12.0 mmol/L Blood Urea Nitrogen 7 mg/dl Creatinine 0.65 mg/dl Est Creatinine Clear Calc Drug Dose 148.5 ml/min Estimated GFR () 128.7 Estimated GFR (Non- 111.1 BUN/Creatinine Ratio 10.8 Random Glucose 207 mg/dl Calcium Level 7.5 mg/dl Magnesium Level 1.8 mg/dl Total Bilirubin 0.4 mg/dl Aspartate Amino Transf (AST/SGOT) 33 U/L Alanine Aminotransferase (ALT/SGPT) 34 U/L Alkaline Phosphatase 81 U/L Total Protein 5.4 gm/dl Albumin 2.7 gm/dl Globulin 2.7 gm/dl Albumin/Globulin Ratio 1.0 Assessment and Plan 1. New dx T2DM - glycemic control improved with lantus and aspart regimen - A1C 14.3 - DM education/counselling provided including eye appt, podiatry, and urine protein/microalbumin testing - will start on lantus 18 at night with lispro 6tidac weight-based regimen - will need to follow-up with PCP - will hold off on metformin unti lhe is more comfortable with his insulin regimen, he appears to be overwhelmed - advised to carry candy with sugar and counselled on hypoglycemic episodes 2. htn - patient on lisinopril at home - will resume on discharge 3. Smoking cessation - counselled on smoking cessation - offered nicotine patch 4. Periodontal infection - cont augmentin 5. THrush - start nystatin s/s dvt ppx with lovenox
[2016-11-14] MEDS ORDERED: APDI SQ (11:13)
--- NOTE | 2016-11-14 11:18 | Discharge Summary ---
Discharge Summary Date of Service Nov 14, 2016. Discharge Summary Admission Date: Nov 13, 2016 at 02:46 Discharge Date: Nov 14, 2016 Discharge Disposition: Home Principal Diagnosis: new-diagnosis diabetes type 2 Medication Reconciliation New Medications: Insulin Glulisine (Apidra Solostar) 100 Units/Ml Inj 6 UNITS SQ TIDM for 30 Days, #1 BOX Insulin Glargine (Lantus Solostar) 100 Unit/Ml Inj 18 UNIT SC HS for 30 Days Nystatin (Nystatin) 5 Ml Susp 5 ML PO QID for 5 Days, #1 BTL Continued Medications: Albuterol Hfa (Ventolin Hfa) 200 Puffs/37717 Mcg Aers 2-4 PUFFS INH Q6H PRN for SOB/Wheezing Aspirin (Aspirin Chewable) 81 Mg Chew 81 MG PO QAM Atorvastatin (Lipitor) 20 Mg Tab 20 MG PO QPM, TAB Cyclobenzaprine Hcl (Flexeril) 10 Mg Tab 10 MG PO TID PRN for Pain Fluticasone Propionate (Inhala (Flovent Diskus) 100 Mcg/Blist Aer 1 PUFFS INH BID, 5 Refills Lisinopril (Zestril) 40 Mg Tab 40 MG PO QAM, TAB Meloxicam (Mobic) 15 Mg Tab 15 MG PO DAILY, TAB Pantoprazole (Protonix) 40 Mg Tab 40 MG PO QAM Hospital Course 1. New dx T2DM - glycemic control improved with lantus and aspart regimen -A1C >14 - DM education/counselling provided including eye appt, podiatry, and urine protein/microalbumin testing - will start on lantus 18 at night with lispro 6tidac weight-based regimen 2. Hyponatremia - 2/2 hyperglycemia and volume depletion - improved 3. htn - bp acceptable off antihypertensive - patient on lisinopril at home - will resume on discharge 4. Smoking cessation - counselled on smoking cessation - offered nicotine patch 5. Periodontal infection - cont augmentin 6. THrush - start nystatin s/s dvt ppx with lovenox Total Time Spent: Greater than 30 minutes This includes examination of the patient, discharge planning, medication reconciliation, and communication with other providers. Discharge Instructions Please refer to the electronic Patient Visit Report (Discharge Instructions) for additional information.
[2016-11-14] MEDS: ACETAMINOPHEN 325 MG TAB PO PRN (11:47)
[2016-11-14] MEDS ORDERED: NYSS5 PO (12:37)
[2016-11-14 12:40] VITALS: BP 137/71; PULSE 74; TEMP 36.6; O2SAT 96
[2016-11-14 14:11] VITALS: Ht 185.4 cm; Wt 89.1 kg
[2016-12-27] MEDS ORDERED: METF-384 PO (14:06)
== END 2016-11-14 13:44 | disposition home or self-care (01) | DRG 638 ==
LOC: ENRESERVTM → ENRESERVDT → EDBD 23:11 → C.EDA 23:15 → C.MSN 11-13 02:46
PROVIDERS: ADMIT Hospitalist; ATTEND Internal Medicine
DX: E11.65 Type 2 diabetes mellitus with hyperglycemia (principal); E87.1 Hypo-osmolality and hyponatremia; J44.0 Chronic obstructive pulmonary disease with (acute) lower respiratory infection; B37.0 Candidal stomatitis; S93.106A Unspecified dislocation of unspecified toe(s), initial encounter; I10 Essential (primary) hypertension; S93.509A Unspecified sprain of unspecified toe(s), initial encounter; K21.9 Gastro-esophageal reflux disease without esophagitis; M47.897 Other spondylosis, lumbosacral region; E78.00 Pure hypercholesterolemia, unspecified; F17.210 Nicotine dependence, cigarettes, uncomplicated; Z79.4 Long term (current) use of insulin; K04.7 Periapical abscess without sinus; X58.XXXA Exposure to other specified factors, initial encounter; Y92.009 Unspecified place in unspecified non-institutional (private) residence as the place of occurrence of the external cause

== ENCOUNTER → 2017-02-16 | Outpatient (CLI) | payer OTHER ==
[~2017-02-16] MED LIST changes: +DICL-201 PO; +INSDGIPEN SC; +MELO15TA4 PO; +METF-384 PO; +NYSS5 PO; +VNTHFA/IN INH
[2017-02-16 17:25] LABS: HEMATOCRIT 47.5 % (42-52); MEAN CELL VOLUME 90.6 fL (80-100); MEAN CORPUSCULAR HEMOGLOBIN 28.4 pg (25-34); MEAN CORPUSCULAR HGB CONC 31.4 g/dl (32-36); MEAN PLATELET VOLUME 10.6 fL (7.4-10.4); PLATELET COUNT 308 K/uL (130-400); RED BLOOD COUNT 5.24 M/uL (4.7-6.1); WHITE BLOOD COUNT 17.54 K/uL (4.8-10.8)
[2017-02-16 17:44] LABS: BLOOD UREA NITROGEN 17 mg/dl (7-18); BUN/CREATININE RATIO 14.5 (10-20); CARBON DIOXIDE 31 mmol/L (21-32); CHLORIDE 106 mmol/L (98-107); GLUCOSE 163 mg/dl (70-99); POTASSIUM 4.8 mmol/L (3.5-5.1); SODIUM 141 mmol/L (136-145)
[2017-02-16 17:47] LABS: CHOLESTEROL 155 mg/dl (0-200); CHOLESTEROL/HDL RATIO 4.1; HDL CHOLESTEROL 38 mg/dl; LDL CHOLESTEROL CALCULATED 86 mg/dl; TRIGLYCERIDES 157 mg/dl (0-150); VERY LOW DENSITY LIPOPROT CALC 31 mg/dl
[2017-02-16 19:58] LABS: ESTIMATED AVERAGE GLUCOSE 249 mg/dl; HA1C FLAG Normal (Normal)
== END | disposition home or self-care (01) ==
LOC: C.LAB1850 16:29
PROVIDERS: ATTEND Nurse Practitioner Family
DX: I10 Essential (primary) hypertension (principal); J44.9 Chronic obstructive pulmonary disease, unspecified; E11.9 Type 2 diabetes mellitus without complications; E78.2 Mixed hyperlipidemia

== ENCOUNTER 2017-12-01 08:17 | Emergency (ER) | payer OTHER ==
[~2017-12-01] VITALS: Ht 185.4 cm; Wt 99.6 kg
[~2017-12-01 08:17] MED LIST changes: -DULO-24 PO; -HYDR-5688 PO
[2017-12-01 08:19] VITALS: TEMP 36.7; Ht 185.4 cm; Wt 99.6 kg
[2017-12-01] MEDS ORDERED: OPTIRAY 320 IV PRN (08:45)
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
[2017-12-01 09:23] LABS: BASO % 0.2 %; BASO ABS # 0.04 K/uL (0-0.2); EOS % 0.2 %; EOS ABS # 0.04 K/uL (0-0.5); HEMATOCRIT 43.4 % (42-52); HEMOGLOBIN 15.3 g/dL (14.0-18.0); IG# 0.06 K/uL (0.00-0.02); LYMPH % 20.7 %; LYMPH ABS # 3.35 K/uL (1.2-3.4); MEAN CELL VOLUME 85.3 fL (80-100); MEAN CORPUSCULAR HEMOGLOBIN 30.1 pg (25-34); MEAN CORPUSCULAR HGB CONC 35.3 g/dl (32-36); MEAN PLATELET VOLUME 9.4 fL (7.4-10.4); MONO % 5.9 %; MONO ABS # 0.95 K/uL (0.11-0.59); NEUT % 72.6 %; NEUT ABS # 11.76 K/uL (1.4-6.5); PLATELET COUNT 280 K/uL (130-400); RED CELL DISTRIBUTION WIDTH CV 12.9 % (11.5-14.5); RED CELL DISTRIBUTION WIDTH SD 40.4 fL (36.4-46.3)
[2017-12-01 09:41] LABS: CALCIUM 9.1 mg/dl (8.5-10.1); CREATININE 0.97 mg/dl (0.60-1.40); POTASSIUM 3.9 mmol/L (3.5-5.1)
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
[2017-12-01] MEDS ORDERED: DULO-24 PO (10:24)
[2017-12-01] MEDS ORDERED: HYDR-5688 PO (10:39)
[2017-12-01] MEDS ORDERED: ACETAMINOPHEN 325 MG TAB PO STA (11:39)
[2017-12-01 12:00] VITALS: BP 120/87; PULSE 88; O2SAT 98
== END 2017-12-01 11:58 | disposition home or self-care (01) ==
LOC: C.EDB 08:19
DX: M25.511 Pain in right shoulder (principal); V89.2XXA Person injured in unspecified motor-vehicle accident, traffic, initial encounter; E11.9 Type 2 diabetes mellitus without complications; I10 Essential (primary) hypertension; E78.00 Pure hypercholesterolemia, unspecified; F17.200 Nicotine dependence, unspecified, uncomplicated; Z79.82 Long term (current) use of aspirin

== ENCOUNTER → 2017-12-01 | Outpatient (CLI) | payer OTHER ==
[~2017-12-01] MED LIST changes: +DULO-24 PO; +HYDR-5688 PO; -INSDGIPEN SC; -MELO15TA4 PO
== END | disposition home or self-care (01) ==
LOC: C.LAB 08:00
DX: Z02.83 Encounter for blood-alcohol and blood-drug test (principal)

== ENCOUNTER → 2018-01-17 | Outpatient (CLI) | payer OTHER ==
[~2018-01-17] MED LIST changes: +DULO-24 PO; -FLUT1AER5 INH; +salonpas TOP
--- NOTE | 2018-01-17 11:32 | DIAGNOSTIC IMAGING REPORT ---
HEAD WITHOUT CONTRAST (CT) CT DOSE: 690.05 mGycm HISTORY: Mental status change ESTRADA'S TECHNIQUE: Multiaxial CT images of the head were performed without the use of intravenous contrast. A dose lowering technique was utilized adhering to the principles of ALARA. Comparison: 12/01/2017 Findings: The paranasal sinuses and mastoid air cells are clear. The calvarium and skull base are intact. The ventricles and sulci are within normal limits. There is no mass, hematoma, midline shift, or acute infarct. Impression: No acute intracranial abnormality. The above report was generated using voice recognition software. It may contain grammatical, syntax or spelling errors. Electronically signed by: Brown Valdovinos M.D. 01/17/2018 11:31 AM Dictated Date/Time: 01/17/2018 11:29 AM
== END | disposition home or self-care (01) ==
LOC: C.CTS 11:10
PROVIDERS: ATTEND Nurse Practitioner Family
DX: R51 Headache (principal); R20.0 Anesthesia of skin; R29.898 Other symptoms and signs involving the musculoskeletal system

== ENCOUNTER 2018-04-16 06:57 | Inpatient (IN) | payer OTHER ==
[2018-03-11 13:16] VITALS: BMI 29.0
--- NOTE | 2018-03-19 12:22 | PAT Medication Instructions ---
Service Date Mar 19, 2018. Current Home Medication List Albuterol Hfa (Ventolin Hfa), 2-4 PUFFS INH Q6H PRN for Shortness of Breath Aspirin (Aspirin Chewable), 81 MG PO QAM Atorvastatin (Lipitor), 20 MG PO HS Cyclobenzaprine Hcl (Flexeril), 10 MG PO TID PRN for Pain Duloxetine HCl (Duloxetine HCl), 1 CAP PO QAM Fluticasone Propionate (Inhala (Flovent Diskus), 1 PUFFS INH BID Fluticasone Propionate (Nasal) (Flonase Allergy Relief), 1 SPRAY EUN QAM Insulin Glargine (Basaglar Kwikpen), 15 UNITS SC QAM Lisinopril (Zestril), 40 MG PO QAM Multivitamin (Multivitamin), 1 TAB PO QAM Pantoprazole (Protonix), 40 MG PO QAM Sertraline (Zoloft), 50 MG PO QAM Medication Instructions For Your Scheduled Surgery - Hold the following medications the morning of surgery: Cyclobenzaprine Hcl (Flexeril), 10 MG PO TID PRN for Pain Lisinopril (Zestril), 40 MG PO QAM Multivitamin (Multivitamin), 1 TAB PO QAM - Take the following medications the morning of surgery with a sip of water: Sertraline (Zoloft), 50 MG PO QAM Pantoprazole (Protonix), 40 MG PO QAM Duloxetine HCl (Duloxetine HCl), 1 CAP PO QAM Fluticasone Propionate (Inhala (Flovent Diskus), 1 PUFFS INH BID Fluticasone Propionate (Nasal) (Flonase Allergy Relief), 1 SPRAY EUN QAM Albuterol Hfa (Ventolin Hfa), 2-4 PUFFS INH Q6H PRN for Shortness of Breath (if needed) Aspirin (Aspirin Chewable), 81 MG PO QAM - Take the following medications as scheduled the night before surgery: Fluticasone Propionate (Inhala (Flovent Diskus), 1 PUFFS INH BID Cyclobenzaprine Hcl (Flexeril), 10 MG PO TID PRN for Pain (if needed) Atorvastatin (Lipitor), 20 MG PO HS Albuterol Hfa (Ventolin Hfa), 2-4 PUFFS INH Q6H PRN for Shortness of Breath (if needed) - For Insulin Dependent Diabetic patients: Test blood sugar A.M. of surgery. - If Blood sugar greater than 150, take half of your regular dose of: Insulin Glargine (Basaglar Kwikpen), take 7 units - If blood sugar less than 150 do not take any: Insulin Glargine ( Basaglar Kwikpen) If you have any questions please call us at [phone] or [phone] or [phone]
--- NOTE | 2018-03-19 13:38 | PAT Medication Instructions ---
Service Date Mar 19, 2018. Current Home Medication List Albuterol Hfa (Ventolin Hfa), 2-4 PUFFS INH Q6H PRN for Shortness of Breath Aspirin (Aspirin Chewable), 81 MG PO QAM Atorvastatin (Lipitor), 20 MG PO HS Cyclobenzaprine Hcl (Flexeril), 10 MG PO TID PRN for Pain Diclofenac (Voltaren), 75 MG PO BID Duloxetine HCl (Duloxetine HCl), 1 CAP PO QAM Fluticasone Propionate (Inhala (Flovent Diskus), 1 PUFFS INH BID Fluticasone Propionate (Nasal) (Flonase Allergy Relief), 1 SPRAY EUN QAM Hydrocodone/Acetaminophen 5MG/325MG ([place] 5MG/325MG), 1-2 TABLETS PO Q6H PRN for Pain Insulin Glargine (Basaglar Kwikpen), 15 UNITS SC QAM Lisinopril (Zestril), 40 MG PO QAM Metformin Hcl (Glucophage), 500 MG PO BID Multivitamin (Multivitamin), 1 TAB PO QAM Pantoprazole (Protonix), 40 MG PO QAM Sertraline (Zoloft), 50 MG PO QAM Sitagliptin (Januvia), 50 MG PO DAILY Medication Instructions For Your Scheduled Surgery - Check with surgeon for instructions: Diclofenac (Voltaren), 75 MG PO BID - Hold the following medications the morning of surgery: Metformin Hcl (Glucophage), 500 MG PO BID Multivitamin (Multivitamin), 1 TAB PO QAM Lisinopril (Zestril), 40 MG PO QAM Sitagliptin (Januvia), 50 MG PO DAILY Cyclobenzaprine Hcl (Flexeril), 10 MG PO TID PRN for Pain - Take the following medications the morning of surgery with a sip of water: Duloxetine HCl (Duloxetine HCl), 1 CAP PO QAM Fluticasone Propionate (Inhala (Flovent Diskus), 1 PUFFS INH BID Fluticasone Propionate (Nasal) (Flonase Allergy Relief), 1 SPRAY EUN QAM Hydrocodone/Acetaminophen 5MG/325MG ([place] 5MG/325MG), 1-2 TABLETS PO Q6H PRN for Pain (okay to take up to 4 hours prior to surgery if needed) Pantoprazole (Protonix), 40 MG PO QAM Sertraline (Zoloft), 50 MG PO QAM Albuterol Hfa (Ventolin Hfa), 2-4 PUFFS INH Q6H PRN for Shortness of Breath (if needed) Aspirin (Aspirin Chewable), 81 MG PO QAM - Take the following medications as scheduled the night before surgery: Metformin Hcl (Glucophage), 500 MG PO BID Fluticasone Propionate (Inhala (Flovent Diskus), 1 PUFFS INH BID Hydrocodone/Acetaminophen 5MG/325MG ([place] 5MG/325MG), 1-2 TABLETS PO Q6H PRN for Pain (if needed) Cyclobenzaprine Hcl (Flexeril), 10 MG PO TID PRN for Pain (if needed) Atorvastatin (Lipitor), 20 MG PO HS - For Insulin Dependent Diabetic patients: Test blood sugar A.M. of surgery. - If Blood sugar greater than 150, take half of your regular dose of: Insulin Glargine (Basaglar Kwikpen), take 7 units - If blood sugar less than 150, do not take any: Insulin Glargine ( Basaglar Kwikpen) If you have any questions please call us at [phone] or [phone] or [phone]
[2018-03-19 14:33] LABS: BASO % 0.4 %; BASO ABS # 0.05 K/uL (0-0.2); EOS ABS # 0.24 K/uL (0-0.5); HEMATOCRIT 41.2 % (42-52); HEMOGLOBIN 13.7 g/dL (14.0-18.0); IG# 0.03 K/uL (0.00-0.02); LYMPH % 28.8 %; LYMPH ABS # 3.38 K/uL (1.2-3.4); MEAN CELL VOLUME 88.4 fL (80-100); MEAN CORPUSCULAR HEMOGLOBIN 29.4 pg (25-34); MEAN CORPUSCULAR HGB CONC 33.3 g/dl (32-36); MEAN PLATELET VOLUME 10.9 fL (7.4-10.4); MONO % 7.2 %; MONO ABS # 0.85 K/uL (0.11-0.59); NEUT % 61.3 %; PLATELET COUNT 246 K/uL (130-400); RED CELL DISTRIBUTION WIDTH CV 13.7 % (11.5-14.5); RED CELL DISTRIBUTION WIDTH SD 43.9 fL (36.4-46.3); WHITE BLOOD COUNT 11.75 K/uL (4.8-10.8)
[2018-03-19 14:43] LABS: INR 0.9 (0.9-1.1); PTT PATIENT 24.5 SECONDS (21.0-31.0)
--- NOTE | 2018-04-15 23:36 | HISTORY & PHYSICAL EXAMINATION ---
DATE OF ADMISSION: 04/16/2018 CHIEF COMPLAINT: Avascular necrosis of the right hip. HISTORY OF PRESENT ILLNESS: Rubio is a pleasant 53-year-old male who has been having a 1-year history of increasing right hip pain. His hip pain is now quite severe. He has significant limp. MRI and clinical examination are diagnostic for avascular necrosis of the right hip. After failing extensive conservative treatment, he has elected to proceed with a right total hip arthroplasty. PAST MEDICAL HISTORY: Significant for hyperlipidemia, hypertension, diabetes, and depression. PAST SURGICAL HISTORY: Significant for reconstructive surgery to his right knee about 8 years ago. ALLERGIES: BEE STINGS. MEDICATIONS: Include an EpiPen as needed, albuterol, aspirin, atorvastatin, cyclobenzaprine, Flovent, Flonase, lisinopril, Protonix, metformin, Januvia, duloxetine, and Zoloft. FAMILY HISTORY: Denies. SOCIAL HISTORY: He is single but has a girlfriend who is able to take care of him. He smokes half a pack a day for 30 years. REVIEW OF SYSTEMS: He complains of severe right hip pain. All the pertinent review of systems are negative. PHYSICAL EXAMINATION: GENERAL: He is awake, alert and oriented x3. He is in no apparent distress. He is very pleasant. HEENT: Pupils are equal, round, and reactive to light. Extraocular movements intact. Oral mucosa is pink and moist. HEART: Regular rate per radial pulse. LUNGS: Jannet symmetrically bilaterally with no audible breath sounds. ABDOMEN: Soft, nontender, nondistended. MUSCULOSKELETAL: On physical examination of the right hip, he walks with a limp and has a cane. He has a very antalgic gait. He has difficulty doing any flexion of the hip. While lying supine, I can get him to about 80 degrees of flexion, 10 degrees of external rotation, 20 degrees of internal rotation. Severe pain at end range of motion. He has 3/5 muscle strength for straight leg raise secondary to pain. IMAGING DATA: X-rays of the right hip do show signs of avascular necrosis. MRI of the hip does show advanced avascular necrosis of his hip. IMPRESSION: Avascular necrosis of the right hip. PLAN: We will proceed with an anterior Biomet Taperloc right total hip arthroplasty. Postoperatively, he will be kept overnight in the hospital for postoperative medical management. He will be started on aspirin for DVT prophylaxis and likely use a home nursing agency upon discharge.
[~2018-04-16] VITALS: Ht 185.4 cm; Wt 100.5 kg
[2018-04-16] VITALS (8 sets, daily range): BP systolic 103–137; BP diastolic 63–85; PULSE 70–87; TEMP 36.3–36.6; O2SAT 96–100; Ht 185.4 cm; Wt 100.5 kg
[2018-04-16] MEDS: TRANEXAMIC ACID INJ 1,000 MG x 2 Bags IV SCH ×4 (06:30→09:33)
[~2018-04-16 06:57] MED LIST changes: +ACETAMINOPHEN 500 MG TAB PO SCH; +ATOR-22 PO; -ATOR-54 PO; +CEFAZOLIN 2000MG IV PUSH 15 ML IV SCH; -DULO-24 PO; +DULO-76 PO; +FAMOTIDINE 20 MG TAB PO SCH; +FLUT0.15 NAE; +FLUT1AER5 INH; +GABAPENTIN 600 MG PO SCH; +GLC/500 PO; +HYDR-5688 PO; +INSU100I23 SC; +LACTATED RINGER'S 1000ML 1,000 ML IV SCH; +LACTATED RINGER'S 1000ML 500 ML IV SCH; +LACTATED RINGER'S 1000ML IV SCH; -METF-384 PO; +MULT-506 PO; -NYSS5 PO; +ROPIVACAINE 5MG/ML 30 ML 150 MG, BUPIVACAINE 0.5% MPF INJ 30 ML, EpINEphrine HCL INJ 0.... INFIL SCH; +SERT50TA PO; +SITA50TA3 PO; -salonpas TOP
--- NOTE | 2018-04-16 07:06 | History & Physical Bridge Note ---
H&P Re-Evaluation Bridge Note: I have examined the patient, reviewed the History & Physical and in the interval since the performance of the History & Physical I have noted the following changes of clinical significance: No changes noted
[2018-04-16] MEDS ORDERED: BUPIVACAINE 0.5 % 5 MG/1 ML PF 10ML VIAL ONE (07:24)
[2018-04-16] MEDS ORDERED: MIDAZOLAM HCL 1 MG/ML 2ML VIAL ONE (07:45)
[2018-04-16] MEDS ORDERED: FENTANYL CITRATE INJ 50 MCG/1 ML 2 ML VIAL ONE (07:45)
[2018-04-16] MEDS ORDERED: LABETALOL HCL IV 5 MG/ML 20ML IV PRN (09:00)
[2018-04-16] MEDS ORDERED: HYDROmorphone INJ 1 MG/ML SYR IV PRN (09:00)
[2018-04-16] MEDS ORDERED: FENTANYL CITRATE INJ 50 MCG/1 ML 2 ML VIAL IV PRN (09:00)
[2018-04-16] MEDS ORDERED: ATROPINE SULFATE 0.1 MG/ML 5ML SYR IV PRN (09:00)
[2018-04-16] MEDS ORDERED: ONDANSETRON INJ 2 MG/ML 2 ML VIAL IV PRN ×2 (09:00→11:30)
[2018-04-16] MEDS ORDERED: EpHEDrine SULFATE INJ 50 MG/ML AMP IV PRN (09:00)
[2018-04-16] MEDS ORDERED: MEPERIDINE HCL 25 MG/ML CARP IV PRN (09:00)
[2018-04-16] MEDS ORDERED: BACITRACIN 50000 UNIT VIAL ONE (09:25)
[2018-04-16] MEDS ORDERED: ORTHO JOINT ANESTHETIC ONE (09:25)
[2018-04-16] MEDS ORDERED: PROPOFOL IV EMULSION 10 MG/ML 20 ML VIAL ONE ×2 (10:13→11:14)
[2018-04-16] MEDS ORDERED: EpHEDrine SULFATE INJ 50 MG/ML AMP ONE (10:13)
[2018-04-16] MEDS ORDERED: LIDOCAINE HCL 2% 2 ML VIAL (20MG/ML) ONE (10:13)
[2018-04-16] MEDS ORDERED: ONDANSETRON INJ 2 MG/ML 2 ML VIAL ONE (10:28)
[2018-04-16] MEDS ORDERED: PHARMACY GLYCEMIC MGMT CONSULT SCH (11:29)
--- NOTE | 2018-04-16 11:29 | [facility] Post Operative Brief Note ---
Immediate Operative Summary Operative Date Apr 16, 2018. Pre-Operative Diagnosis Avascular necrosis of the right hip Post-Operative Diagnosis Avascular necrosis of the right hip Procedure(s) Performed Primary osteoarthritis of the left hip Surgeon Dr. Ramirez Changeover Operator Surgeon(s) Sonido Mcnally PA-C Estimated Blood Loss 250ML Findings Consistent with Post-Op Diagnosis Specimens a. right femoral head Anesthesia Type Spinal MAC
[2018-04-16] MEDS ORDERED: BISACODYL 10 MG SUPP PR PRN (11:30)
[2018-04-16] MEDS ORDERED: GLUCAGON FOR INJ 1 MG VIAL SQ PRN (11:30)
[2018-04-16] MEDS ORDERED: CARBOHYDRATES FOR HYPOGLYCEMIA PO PRN (11:30)
[2018-04-16] MEDS ORDERED: MoRPHine SULFATE 2 MG/ML CARP IV PRN (11:30)
[2018-04-16] MEDS ORDERED: SOD PHOSPHATE/SOD BIPHOSPHATE ENEMA 132 ML BTL PR PRN (11:30)
[2018-04-16] MEDS ORDERED: GLUCOSE 40% GEL 15 GM TUBE PO PRN (11:30)
[2018-04-16] MEDS ORDERED: MAGNESIUM HYDROXIDE SUSP 30 ML UDC PO PRN (11:30)
[2018-04-16] MEDS ORDERED: METOCLOPRAMIDE HCL INJ 5 MG/ML 2 ML VIAL IV PRN (11:30)
[2018-04-16] MEDS ORDERED: ALBUTEROL HFA 8 GM INHALER INH PRN (11:30)
[2018-04-16] MEDS ORDERED: GLUCOSE 10 TABS/TUBE PO PRN (11:30)
[2018-04-16] MEDS ORDERED: DEXTROSE 50% 50 ML SYR IV PRN (11:30)
--- NOTE | 2018-04-16 11:38 | Discharge Instructions ---
Discharge Instructions Date of Service Apr 16, 2018. Admission Reason for Admission: Right Hip Avascular Necrosis Discharge Discharge Diagnosis / Problem: Right Total Hip Discharge Goals Goal(s): Decrease discomfort, Improve function Activity Recommendations Activity Limitations: as noted below . Instructions / Follow-Up Instructions / Follow-Up Activity and Therapy Recommendations: * If you are using [facility] then Physical Therapy will be provided until they feel you are ready to start Outpatient Physical Therapy. If you are not using a Home Health agency then Outpatient Physical Therapy should start about 3-5 days from your day of surgery. Therapy will last about 3-6 weeks * You were shown a series of exercises in the hospital. Do these exercises three times each day including the exercises you were shown in physical therapy. * Get up and walk several times each day.~ For the first four weeks, try not to stand or walk for more than one hour at a time. If you do stand or walk for more than one hour, you will not hurt anything, but your leg will likely swell.~ ~ * As you feel comfortable, you may change from the walker or crutches to a cane and~then to independent walking. Medications: * Narcotic You will likely be sent home from the hospital with a prescription for the narcotic pain medication that worked best throughout your stay. * Aspirin Most patients will be required to take Aspirin 325mg twice a day for 6 weeks after surgery. This is obtained [id number] and a prescription is not necessary. * Other medications may be prescribed for specific circumstances. If you have any questions, please call the office at . * Resume previous home medications unless otherwise instructed TEDs/Elastic Stockings: The white elastic stockings help limit swelling and prevent blood clots from forming in your legs. The more you wear them, the more they work. Wear them for six weeks. Dressing Care: You will likely have a purple VAC dressing after surgery. This dressing will keep the incision dry and promote early healing. After about 8 days the batteries will wear out and the VAC will lose suction. Simply remove the dressing at that time and throw everything away, including the small suction machine. Then, you may leave the jj open to air or cover them with a dry dressing so they do not rub on your pants. The jj will be removed at your 2 week follow-up appointment. Showering: You may shower immediately with the purple VAC dressing. Let the shower spray hit your opposite side and slowly pat the plastic dry. Do not soak the dressing. After the dressing is removed you may shower normally with the jj exposed. Let soapy water run over the jj and pat them dry. Things To Watch For: * Drainage from the incision site that occurs more than one week after your surgery. * Increased redness at the incision site. * Fever above 102 degrees Fahrenheit. * Unusual chest pain or shortness of breath. * Call [facility] at with any of the above problems Follow-Up Visit: Follow-up with Dr. Ramirez 2 weeks after your day of surgery. An appointment was probably scheduled when you signed-up for surgery in the office. If you have any questions call Office Instructions: More detailed instructions as well as Frequently Asked Questions were provided in a folder by our office when you signed-up for surgery. Please review these instructions when you get home. If you have any further questions or concerns, please feel free to call the office at [phone] Current Hospital Diet Patient's current hospital diet: Diabetes Type 2 Diet Discharge Diet Recommended Diet: Diabetes Type 2 Diet Procedures Procedures Performed: Primary osteoarthritis of the left hip Pending Studies Studies pending at discharge: no Medical Emergencies . Who to Call and When: Medical Emergencies: If at any time you feel your situation is an emergency, please call [phone] immediately. . Non-Emergent Contact Non-Emergency issues call your: Surgeon Call Non-Emergent contact if: wound has increased drainage, wound has increased redness . "Provider Documentation" section prepared by Pacheco Ramirez. .
[2018-04-16] MEDS ORDERED: PHARMACY GLYCEMIC MGMT CONSULT PRN (12:00)
--- NOTE | 2018-04-16 12:23 | DIAGNOSTIC IMAGING REPORT ---
R HIP UNILATERAL 1 VIEW CLINICAL HISTORY: RT ANTERIOR TOTAL hip replacement COMPARISON: None. DISCUSSION: Anatomic alignment post total right hip arthroplasty. Expected soft tissue postoperative change IMPRESSION: Anatomic alignment post total right hip arthroplasty The above report was generated using voice recognition software. It may contain grammatical, syntax or spelling errors. Electronically signed by: Brown Valdovinos M.D. 04/16/2018 12:22 PM Dictated Date/Time: 04/16/2018 12:21 PM
--- NOTE | 2018-04-16 12:30 | OPERATIVE REPORT ---
DATE OF OPERATION: 04/16/2018 PREOPERATIVE DIAGNOSIS: Avascular necrosis of the right hip. POSTOPERATIVE DIAGNOSIS: Avascular necrosis of the right hip. PROCEDURE: Right total hip arthroplasty. SURGEON: Pacheco Ramirez DO THIRD RAIL INSTALLER: Jonathan Mcnally PA-C, whose assistance was necessary for retraction and closure. ANESTHESIA: Spinal. COMPLICATIONS: None. CONDITION: Stable to PACU. IMPLANTS USED: I used a Biomet Taperloc total hip arthroplasty system with a size 54 mm G7 cup, a 30 mm screw, a neutral E-Poly liner, a size 15 standard offset Taperloc stem and a 40 mm ceramic head with a 0 neck. INDICATIONS: Rubio is a pleasant 53-year-old male who is complaining of a year long history of right hip pain. It has gotten quite severe over the past month. MRI showed avascular necrosis of the right hip. After failing conservative treatment, he elected to undergo a right total hip arthroplasty. OPERATION AND FINDINGS: On 04/16/2018, he arrived at [facility] for the above procedure. He was seen in the preoperative holding area and the operative extremity was identified and signed. He was given a preoperative antibiotic and a spinal anesthetic. He was taken back to the operating room, laid on the table in supine position and given basic sedation. The right leg was then brought out to Purist leg positioner. The right hip was then prepped and draped in sterile fashion. Time-out was done. The patient's operative extremity was properly identified. An anterior approach was used. Dissection was taken down through the fascia and the tensor muscle belly was retracted laterally and the rectus was retracted medially. The circumflex vessels were ligated and the capsule was incised and tagged for later repair. The femoral neck was then resected along the intertrochanteric line. The femoral head was removed. The acetabulum was exposed. Time was spent doing a complete circumferential labral release. Sequential reaming of the acetabulum up to a size 53 reamer was done. Final reamings were done under fluoroscopy to ensure appropriate version. A 54 mm G7 cup was then impacted into place. A single 30-mm screw was placed and a 40-mm neutral E-Poly liner. Surrounding soft tissues were injected with 100 mL of an orthopedic pain control cocktail. The proximal femur was then exposed. Sequential broaching up to a size 15 broach was done. A standard head and neck assembly was applied. The hip was reduced. I was happy with the overall size of the components and the length of the hip under fluoroscopy. The hip was then dislocated. The broach was removed. The final size 15 standard offset Taperloc stem was impacted into place. A 40 mm ceramic head with a 0 neck was then impacted into place. The hip was then reduced. Final fluoroscopic images showed anatomic alignment of the hip. The wound was then irrigated with 3 L normal saline solution with bacitracin. The capsule was closed with #1 Vicryl suture. Fascia was closed with #1 PDS. Skin was closed with 2-0 Vicryl and jj and a Prevena VAC dressing. He was then transferred to a hospital bed and taken to postanesthesia care unit in stable condition. He tolerated the procedure well. I attest to the content of the Intraoperative Record and any orders documented therein. Any exception s are noted below.
--- NOTE | 2018-04-16 12:51 | DIAGNOSTIC IMAGING REPORT ---
R PELVIS/UNILATERAL HIP 1 VIEW CLINICAL HISTORY: IN PACU - A/P PELVIS and LATERAL HIP INCLUDING ALL OF IMPLANT COMPARISON: None. DISCUSSION: Total right hip arthroplasty. Good contact between prosthetic and underlying bone. The oblique projection femoral shaft suggests lucencies distal to the femoral prosthetic this appears represent overlying soft tissue air and postoperative change. Expected postoperative soft tissue change. IMPRESSION: Anatomic alignment post total right hip arthroplasty. The above report was generated using voice recognition software. It may contain grammatical, syntax or spelling errors. Electronically signed by: Brown Valdovinos M.D. 04/16/2018 12:50 PM Dictated Date/Time: 04/16/2018 12:49 PM
--- NOTE | 2018-04-16 13:35 | Anesthesiology Progress Note ---
Anesthesia Post Op Note Date & Time Apr 16, 2018 at 13:34 Vital Signs Pain Intensity: 0.0 Vital Signs Past 12 Hours Date Time Temp Pulse Resp B/P (MAP) Pulse Ox O2 Delivery O2 Flow Rate FiO2 04/16/18 13:23 76 17 116/63 (80) 100 Nasal Cannula 2.0 04/16/18 12:50 36.3 81 18 108/69 (82) 98 Nasal Cannula 2.0 04/16/18 12:50 Nasal Cannula 2.0 04/16/18 12:50 98 Nasal Cannula 2.0 04/16/18 12:37 78 14 99 04/16/18 12:37 78 14 04/16/18 12:36 107/73 04/16/18 12:34 37.0 98 Nasal Cannula 2 04/16/18 12:32 77 22 98 04/16/18 12:32 77 22 04/16/18 12:31 96/66 04/16/18 12:29 81 23 97 04/16/18 12:29 80 23 04/16/18 12:26 111/61 04/16/18 12:24 83 23 98 04/16/18 12:24 78 23 04/16/18 12:21 103/69 04/16/18 12:19 85 19 98 04/16/18 12:19 84 19 04/16/18 12:18 80 18 98 04/16/18 12:18 80 18 04/16/18 12:16 106/64 04/16/18 12:13 80 15 100 04/16/18 12:13 79 15 04/16/18 12:11 113/65 04/16/18 12:08 69 13 04/16/18 12:08 69 13 100 04/16/18 12:06 104/59 04/16/18 12:03 73 21 100 04/16/18 12:03 72 21 04/16/18 12:01 104/65 04/16/18 11:59 99/59 04/16/18 11:58 79 22 04/16/18 11:58 78 22 99 04/16/18 11:58 36.3 77 18 99/59 98 Oxymask 10 04/16/18 07:59 36.6 84 20 137/85 97 Room Air Notes Neuraxial Anesthesia: was administered, sensory block is resolving
--- NOTE | 2018-04-16 13:57 | Pharmacy Progress Note ---
Glycemic Control Intl Consult Date of Service Apr 16, 2018. Scope Glycemic Pharmacist consulted by Dr Ramirez on 04/16/18 for glycemic control and to write orders per [facility] inpatient glycemic control protocol Objective Weight (Kilograms): 100.450 Accuchecks BSG (last 24hrs): Test 04/16/18 07:20 Bedside Glucose 146 mg/dl (70-99) Recent Pertinent Medications Outpatient Anti-diabetic Regimen: * Metformin 1 gm BID - confirmed this w/ patient and updated med rec * Januvia 50 mg daily * Basaglar 15 units qAM - only takes when needed * A1c = 6.4 % 02/15/18, down from 10.3% on 02/16/17 Risk Factors for Insulin Resistance: * Steroids: Received dexamethasone 4 mg in the periarticular injection * Recent Surgery: POD 0 s/p R RAY * Diet: type 2 diabetes diet ordered postop Assessment & Plan ASSESSMENT: * 53 y/o male admitted for hip surgery, with well controlled diabetes as an outpatient. A1c over the past few years has decreased dramatically to a goal A1c. * Pt is maintained on oral antidiabetic agents + Lantus prn dosing (last dose ) as an outpatient * Oral agents are not recommended for inpatient use d/t drug interactions, changing PO intake, and difficulty titrating for acute hyper/hypoglycemia. ADA recommends re-initiating outpatient oral agents 1-2 days prior to discharge if/ when appropriate if they were held on admission. * Will hold oral agents for admission and utilize SQ basal bolus insulin regimen which is the recommended regimen for inpatient glycemic control. * Will initiate weight based insulin dosing for insulin supa patient and titrate based on BSG trends. Anticipate BSGs to increase from intraop steroid dose so will be slightly more aggressive, utilizing patient's weight and between stress 2 & 3 from insulin calculator PLAN FOR INPATIENT GLYCEMIC CONTROL: * Hold outpatient oral diabetes medications - can plan to resume POD 1 as long as patient meets criteria * Basal insulin with LANTUS 20 units SQ qAM * Correctional Insulin with NOVOLOG per scale ACHS or Q6hrs while NPO * Goal Range: Low 110 mg/dL - High 140 mg/dL * Correction Factor: 20 mg/dL/unit * Nutritional / Prandial insulin per carb ratio of 1 unit per 7 grams CHO consumed Discharge Recommendations: * A1c indicates excellent outpatient control * Resume outpatient regimen on discharge Thank you.
[2018-04-16] MEDS: ACETAMINOPHEN IV 1,000 MG in EMPTY BAG 0 ML IV SCH ×2 (14:37→21:42)
[2018-04-16] MEDS: INSULIN ASPART 100 UNITS/ML 3 ML PEN SC SCH ×3 (15:27→21:48)
[2018-04-16] MEDS: INSULIN GLARGINE SOLOSTAR 100 UNITS/ML 3 ML PEN SC SCH (15:28)
[2018-04-16] MEDS: OXYCODONE HCL IR 5 MG TAB (IMMEDIATE RELEASE) PO PRN ×2 (16:23→21:41)
[2018-04-16] MEDS: SODIUM CHLORIDE 0.9% 1000ML 1,000 ML IV SCH (16:25)
[2018-04-16] MEDS: CEFAZOLIN IV 2,000 MG in SYRINGE 0 ML IV SCH (18:00)
[2018-04-16] MEDS: KETOROLAC TROMETHAMINE 30 MG/ML VIAL IV. SCH (18:00)
[2018-04-16] MEDS ORDERED: NURSING VERBAL MED ORDER ONE (19:45)
[2018-04-16] MEDS ORDERED: NICOTINE 21 MG/24 HR TDSY EXT ONE (20:00)
[2018-04-16] MEDS ORDERED: ATORVASTATIN 20 MG TAB PO SCH (21:00)
[2018-04-16] MEDS ORDERED: SENNA 8.6 MG TAB PO SCH (21:00)
[2018-04-16] MEDS: ASPIRIN 325 MG ECTAB PO SCH (21:42)
[2018-04-16] MEDS: FLUTICASONE HFA 220 MCG INHALER INH SCH (21:43)
[2018-04-16] MEDS: DOCUSATE SODIUM 100 MG CAP PO SCH (22:13)
[2018-04-17] MEDS: KETOROLAC TROMETHAMINE 30 MG/ML VIAL IV. SCH ×2 (00:21→05:35)
[2018-04-17] MEDS: SODIUM CHLORIDE 0.9% 1000ML 1,000 ML IV SCH ×2 (00:21→09:08)
[2018-04-17] MEDS: CEFAZOLIN IV 2,000 MG in SYRINGE 0 ML IV SCH (02:18)
[2018-04-17] MEDS: OXYCODONE HCL IR 5 MG TAB (IMMEDIATE RELEASE) PO PRN ×2 (02:24→09:14)
[2018-04-17 03:28] VITALS: BP 139/78; PULSE 98; TEMP 36.6; O2SAT 97
[2018-04-17] MEDS: ACETAMINOPHEN IV 1,000 MG in EMPTY BAG 0 ML IV SCH (05:35)
[2018-04-17 06:13] LABS: BASO % 0.1 %; BASO ABS # 0.02 K/uL (0-0.2); EOS % 0.1 %; EOS ABS # 0.02 K/uL (0-0.5); HEMATOCRIT 37.7 % (42-52); HEMOGLOBIN 12.1 g/dL (14.0-18.0); IG# 0.05 K/uL (0.00-0.02); LYMPH % 13.9 %; LYMPH ABS # 2.55 K/uL (1.2-3.4); MEAN CELL VOLUME 88.3 fL (80-100); MEAN CORPUSCULAR HEMOGLOBIN 28.3 pg (25-34); MEAN CORPUSCULAR HGB CONC 32.1 g/dl (32-36); MEAN PLATELET VOLUME 10.7 fL (7.4-10.4); MONO ABS # 1.47 K/uL (0.11-0.59); NEUT % 77.6 %; NEUT ABS # 14.19 K/uL (1.4-6.5); PLATELET COUNT 224 K/uL (130-400); RED CELL DISTRIBUTION WIDTH CV 13.5 % (11.5-14.5); RED CELL DISTRIBUTION WIDTH SD 43.2 fL (36.4-46.3)
[2018-04-17 06:43] LABS: CALCIUM 7.7 mg/dl (8.5-10.1); CREATININE 1.28 mg/dl (0.60-1.40); POTASSIUM 4.2 mmol/L (3.5-5.1)
[2018-04-17 06:55] VITALS: BP 136/87; PULSE 89; TEMP 36.6; O2SAT 95
[2018-04-17] MEDS ORDERED: ASPEC325 PO (07:12)
[2018-04-17] MEDS ORDERED: RXC5 PO (07:12)
--- NOTE | 2018-04-17 08:11 | PROGRESS NOTE ---
DATE: 04/17/2018 CHIEF COMPLAINT: Status post right total hip arthroplasty postop day #1. PROGRESS: Rubio was seen and examined at bedside today. Overall, he is doing very well. He has been up and ambulating around the nurses' station 3 times this morning. He is really not having much pain in the hip. He is very happy with his progress. He has no complaints. PHYSICAL EXAMINATION: RIGHT HIP: The Prevena VAC dressing is to suction. His leg lengths are equal. He has active dorsiflexion, plantar flexion of his right ankle and sensation is intact throughout. LABS: He has an H&H today of 12.1 and 37.7. His glucose is 191. His vital signs are all stable on room air and he is voiding on his own. X-rays postoperatively of the right hip show the prosthesis to be in anatomic alignment without any evidence of fracture, dislocation or loosening. IMPRESSION: Status post right total hip arthroplasty postop day #1. PLAN: At this point, he is doing very well. He has been up and ambulating around the hallways. His pain is well controlled. He would like to be discharged to home later this morning. I think it is reasonable. We will use aspirin for DVT prophylaxis. We will discharge him to home this morning with home nursing agency.
[2018-04-17 08:12] VITALS: BP 136/87; PULSE 89; TEMP 36.6; O2SAT 95
[2018-04-17] MEDS: FLUTICASONE HFA 220 MCG INHALER INH SCH (08:18)
[2018-04-17] MEDS: ASPIRIN 325 MG ECTAB PO SCH (08:20)
[2018-04-17] MEDS: DOCUSATE SODIUM 100 MG CAP PO SCH (08:20)
[2018-04-17] MEDS: INSULIN GLARGINE SOLOSTAR 100 UNITS/ML 3 ML PEN SC SCH (08:32)
[2018-04-17] MEDS: INSULIN ASPART 100 UNITS/ML 3 ML PEN SC SCH (08:32)
--- NOTE | 2018-04-17 08:35 | DISCHARGE SUMMARY ---
DISCHARGE DIAGNOSIS: Avascular necrosis of the right hip. PROCEDURE: Right total hip arthroplasty on 04/16/[address] Pacheco Ramirez. DISCHARGE INSTRUCTIONS: 1. Aspirin 325 mg twice a day for 6 weeks. 2. SARAHI hose stockings for 6 weeks. 3. Oxycodone 5-10 mg every 4 hours as needed for pain. 4. Albuterol 1-2 puffs every 6 hours as needed. 5. Lipitor 20 mg at night. 6. Flexeril 10 mg as needed. 7. Voltaren 75 mg twice a day. 8. Duloxetine 40 mg tablet in the morning. 9. Flonase 1 puff twice a day. 10. Insulin 15 units in the morning. 11. Zestril 40 mg daily. 12. Glucophage 1000 mg twice a day. 13. Daily multivitamin. 14. Protonix 40 mg daily. 15. Zoloft 50 mg daily. 16. Januvia 50 mg daily. 17. Weightbear as tolerated. 18. Prevena VAC dressing for 8 days. 19. Follow up with Dr. Ramirez in 2 weeks. 20. Call the office of Dr. Ramirez with any questions or concerns. HOSPITAL COURSE: Rubio is a pleasant 53-year-old male who presented to my office with a year long history of right hip pain. His pain got a lot worse over the last month. MRI and clinical examination were diagnostic for avascular necrosis of the right hip. After failing conservative treatment, he elected to undergo a right total hip arthroplasty. On 04/16/2018, he arrived at [facility] and underwent a right hip replacement without complication. He had a spinal anesthetic. Postoperatively, he was started on aspirin for DVT prophylaxis and discharged to general orthopedic floor. His hospital course was uneventful. On postop day #1, his H&H was stable at 12.1 and 37.7. He was up and ambulating very well on his own and with physical therapy. His pain was well controlled and he was subsequently discharged to home with home nursing agency and the above instructions.
[2018-04-17] MEDS ORDERED: FLUTICASONE PROPIONATE NA SPR 16 GM BTL NAE SCH (09:00)
[2018-04-17] MEDS ORDERED: LISINOPRIL 40 MG TAB PO SCH (09:00)
[2018-04-17] MEDS ORDERED: MULTIVITAMIN TAB PO SCH (09:00)
[2018-04-17] MEDS ORDERED: PANTOprazole SOD 40 MG TAB PO SCH (09:00)
[2018-04-17] MEDS ORDERED: SERTRALINE HCL 50 MG TAB PO SCH (09:00)
[2018-04-17] MEDS ORDERED: NICOTINE 21 MG/24 HR TDSY EXT SCH (09:00)
[2018-04-17] MEDS ORDERED: ACETAMINOPHEN 500 MG TAB PO SCH (14:00)
== END 2018-04-17 10:50 | disposition home health service (06) | DRG 470 ==
LOC: C.ACU 06:57 → C.3E 11:34 → ENRESERV 12:15
PROVIDERS: ADMIT Orthopaedic Surgery; ATTEND Orthopaedic Surgery
PROC: 0SR904Z Replacement of Right Hip Joint with Ceramic on Polyethylene Synthetic Substitute, Open Approach (ICD-10-PCS; principal; 2018-04-16 09:20)
DX: M87.051 Idiopathic aseptic necrosis of right femur (principal); E78.5 Hyperlipidemia, unspecified; I10 Essential (primary) hypertension; E11.9 Type 2 diabetes mellitus without complications; F32.9 Major depressive disorder, single episode, unspecified; Z79.4 Long term (current) use of insulin